=== PATIENT | female | born 1965 | race Caucasian/White ===

== ENCOUNTER 2019-03-06 18:30 | Emergency (ER) | payer SELFPAY ==
[~2019-03-06] VITALS: Ht 154.9 cm; Wt 90.4 kg
--- OUTSIDE RECORDS SUMMARY | 2019-03-06 18:32 | XMS REPORT | Continuity of Care Document ---
Author Author [facility] Address Unknown Phone Unavailable Problems Problem Status Onset Date Classification Date Reported Comments Source Palpitations 02/23/2018 05/27/2018 [facility] R00.2 CTA AORTA ABDOMEN WITH LEG RUNOF Active 02/11/2018 [facility] Atherosclerosis of aorta 05/27/2018 [facility] Medications Medication Details Route Status Patient Instructions Ordering Provider Order Date Source Allergies, Adverse Reactions, Alerts Substance Category Reaction Severity Reaction type Status Date Reported Comments Source codeine Assertion Drug allergy Active OPID [place] Immunizations Immunization Date Given Site Status Last Updated Comments Source Results Order Name Results Value Reference Range Date Interpretation Comments Source Hand 3 views Bilateral DX Hand 3 views Bilateral DX Clinical Indication: Bilateral hand pain. Comparison: None. Right hand: FINDINGS: The AP, oblique and lateral views of the right hand show normal alignment without fractures or dislocations. The digit and thumb interphalangeal joints are unremarkable. The metacarpophalangeal joints are unremarkable. The carpometacarpal joint regions are unremarkable. There are no osseous erosive changes, periarticular osteopenia or periarticular soft tissue swelling. There are no soft tissue calcifications. There is no soft tissue swelling or radiopaque foreign bodies. The visualized wrist region is grossly unremarkable. If there is further concern, consider MRI or bone scan for complete assessment. IMPRESSION: 1. Unremarkable right hand radiographs. Left hand: FINDINGS: The AP, oblique and lateral views of the left hand show normal alignment without fractures or dislocations. The digit and thumb interphalangeal joints are unremarkable. The metacarpophalangeal joints are unremarkable. The carpometacarpal joint regions are unremarkable. There are no osseous erosive changes, periarticular osteopenia or periarticular soft tissue swelling. There are no soft tissue calcifications. There is no soft tissue swelling or radiopaque foreign bodies. The visualized wrist region is grossly unremarkable. If there is further concern, consider MRI or bone scan for complete assessment. IMPRESSION: 1. Unremarkable left hand radiographs. SL: [id number] 02/24/2019 - - Read by: Marysol Perez DO Dictated Date/time: 02/25/19 09:27 Electronically Signed by: Marysol Perez DO 02/25/19 09:28 FINAL REPORT ABDIRASHID [place] CHEM PANEL eGFR 100 mL/min/1.73m2 02/18/2018 Result Comment: The eGFR is calculated using the CKD-EPI formula. In most young, healthy individuals the eGFR will be >90 mL/min/1.73m2. The eGFR declines with age. An eGFR of 60-89 may be normal in some populations, particularly the elderly, for whom the CKD-EPI formula has not been extensively validated. Use of the eGFR is not recommended in the following populations: Individuals with unstable creatinine concentrations, including patients and those with serious co-morbid conditions. Patients with extremes in muscle mass or diet. The data above are obtained from the National Kidney Disease Education Program (NKDEP) which additionally recommends that when the eGFR is used in patients with extremes of body mass index for purposes of drug dosing, the eGFR should be multiplied by the estimated BMI. [facility] CHEM [facility] P[facility] Creatinine 0.7 mg/dL 0.5 - 1.4 02/18/2018 [facility] Abdominal Aorta with runoff CTA Abdominal Aorta with runoff CTA Clinical Indication: Peripheral arterial disease, claudication; Comparison: None TECHNIQUE: CT angiography of the abdomen, pelvis and lower extremities was performed from the level of the upper abdomen to the feet after administration of iodinated contrast. Coronal and sagittal reconstructions were obtained. 3-D reconstruction imaging with postprocessing was also performed of the arterial vessels. IV CONTRAST: 100 mL Omnipaque GI CONTRAST: None DLP: 808 mGy-cm FINDINGS: CTA ABDOMEN: ARTERIAL EVALUATION: The abdominal aorta is unremarkable. The celiac, superior mesenteric and inferior mesenteric arteries appear unremarkable. The proximal arterial branches appear unremarkable. Single left and 2 right renal arteries are patent. Filter in the infrarenal IVC, likely Bird's nest type Incidentally the left renal vein is retroaortic. ABDOMINAL SOLID ORGANS: The arterial phase contrast-enhanced images of the liver, spleen, pancreas, kidneys and adrenals are unremarkable. Cholecystectomy. PERITONEUM AND RETROPERITONEUM: There is no retroperitoneal or abdominal lymphadenopathy. There is no abdominal ascites. STOMACH AND BOWEL: Limited evaluation without contrast. There is a right lower quadrant ileostomy or hernia. The majority of the colon appears to have been resected. Correlation with surgical history is advised. VISUALIZED LUNG BASES: Unremarkable. OSSEOUS STRUCTURES: There is generalized osteopenia. There are no gross osseous abnormalities seen. CTA PELVIS: ARTERIAL EVALUATION: Atherosclerotic calcifications of the common iliac arteries without any hemodynamically significant stenosis. PERITONEUM AND EXTRAPERITONEAL REGIONS: There is no pelvic lymphadenopathy or ascites. The inguinal regions are unremarkable. BLADDER: The bladder is unremarkable. OSSEOUS STRUCTURES: There are no definite significant osseous abnormalities seen. CTA EXTREMITY: LOWER EXTREMITY ARTERIAL EVALUATION: RIGHT: Common femoral artery: Patent. Deep femoral artery: Patent. Superficial femoral artery: Patent. Popliteal artery: Patent. Tibioperoneal trunk: Patent. Anterior tibial artery: Patent. Posterior Tibial artery: Patent. Peroneal artery: Patent. Dorsal pedis artery: Patent. LEFT: Common femoral artery: Patent. Deep femoral artery: Patent. Superficial femoral artery: Patent. Popliteal artery: Patent. Tibioperoneal trunk: Patent. Anterior tibial artery: Patent. Posterior Tibial artery: Patent. Peroneal artery: Patent. Dorsal pedis artery: Patent. NON-VASCULAR LOWER EXTREMITY STRUCTURES: There are no fractures or dislocations noted. The lower extremity musculature appears unremarkable. IMPRESSION: 1. Patent bilateral three-vessel runoff. No hemodynamically significant stenosis in the arteries of the lower extremities. 2. Mild aortoiliac atherosclerotic disease. SL: [id number] 02/18/2018 - - Read by: Tico Calvert MD Dictated Date/time: 02/18/18 13:08 Electronically Signed by: Tico Calvert MD 02/18/18 14:13 FINAL REPORT [facility] Vital Signs Vital Sign Value Date Comments Source Encounters Location Location Details Encounter Type Encounter Number Reason For Visit Attending Provider ADM Date DC Date Status Source [facility] Outpatient [id number] Cindy Potter Jr 02/18/2018 02/19/2018 [facility] [id number] Mitchel Hernadez 02/24/2019 02/25/2019 ABDIRASHID Michele Procedures Procedure Code Date Perfomer Comments Source
--- OUTSIDE RECORDS SUMMARY | 2019-03-06 18:32 | XMS REPORT | Summary of Care ---
Author Author [facility] Organization [facility] Address Unknown Phone Unavailable Encounter [facility]ars[facility](FIN) [id number] Date(s): 02/18/18 - 02/18/18 [facility] [address] [place] [address]- Encounter Diagnosis Palpitations (Final) - 02/22/18 Atherosclerosis of aorta (Final) - Discharge Disposition: Home or Self Care Attending Physician: Cindy Beaver DO Referring Physician: Cindy Beaver DO Vital Signs No data available for this section Problem List No data available for this section Allergies, Adverse Reactions, Alerts Substance Reaction Severity Status codeine Active Medications No data available for this section Results CHEM PANEL Most recent to 1 oldest [Reference Range]: eGFR 100 mL/min/1.73m2 1 *NA* (02/18/18 8:44 AM) POC Creatinine 0.7 mg/dL [0.5-1.4 mg/dL] (02/18/18 8:44 AM) 1Result Comment: The eGFR is calculated using the [...] from the National Kidney Disease Education Program ( NKDEP) which additionally recommends that when the eGFR is used in patients with extremes of body mass index for purposes of drug dosing, the eGFR should be mul tiplied by the estimated BMI. Immunizations No data available for this section Procedures No data available for this section Social History No data available for this section Assessment and Plan No data available for this section
--- OUTSIDE RECORDS SUMMARY | 2019-03-06 18:32 | XMS REPORT ---
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 Allergies, Adverse Reactions, Alerts This patient has no known allergies or adverse reactions. Medications This patient has no known medications. Encounters Start Date/Time End Date/Time Encounter Type Admission Type Attending [facility] Care Department Encounter ID 2017-11-07 00:00:00 2017-11-07 00:00:00 Outpatient [facility] [id number] 2017-08-13 07:51:02 2017-08-13 07:51:02 Outpatient [facility] [id number] 2017-08-13 00:00:00 2017-08-13 00:00:00 Outpatient [facility] [id number] 2017-08-13 00:00:00 2017-08-13 00:00:00 Outpatient [facility] [id number] 2017-05-23 09:31:01 2017-05-23 09:31:01 Outpatient [facility] [id number] 2017-04-20 14:03:37 2017-04-20 14:03:37 Outpatient [facility] [id number]
[2019-03-06] MEDS ORDERED: ONDANSETRON HCL 4 MG ORAL DISINTEGRATING TAB PO ONE (19:30)
[2019-03-06] MEDS ORDERED: HYDROCODONE/APAP 5MG-325MG TAB PO ONE (19:30)
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
== END 2019-03-06 20:15 | disposition home or self-care (01) ==
LOC: FSED 18:30
DX: M54.2 Cervicalgia (principal); V53.5XXA Driver of pick-up truck or van injured in collision with car, pick-up truck or van in traffic accident, initial encounter; Y92.488 Other paved roadways as the place of occurrence of the external cause
CPT/HCPCS: 72125; 99284; Q0162

== ENCOUNTER → 2019-03-11 | Outpatient (CLI) | payer OTHER ==
--- NOTE | 2019-03-11 16:14 | Diagnostic Imaging Report ---
EXAM: HIP RIGHT 2-3 VW (+/- PELVIS) DATE: 03/11/2019 12:50 PM INDICATION:Sprain of right hip COMPARISON: None FINDINGS: 4 views of the pelvis and right hip were obtained. AP views of the pelvis show no displaced fracture. The hip joints appear symmetric. There is partial visualization of a metallic density to the right of the L4 vertebral body. AP and oblique views of the right hip show no displaced fracture or dislocation. Joint space is maintained. Soft tissues unremarkable. IMPRESSION: No acute bony abnormality. Hip joint spaces appear symmetric and maintained. Signed by: Dr. Maxx Mercado M.D. on 03/11/2019 4:11 PM
--- NOTE | 2019-03-11 17:42 | Diagnostic Imaging Report ---
Exam: Right shoulder series; 2 views dated 03/11/2019 History: Sprain Comparison: None available Findings: There is no fracture or dislocation. Soft tissues appear intact. Slight irregularity of the distal clavicle not involving the articular surface at the AC joint likely represents old or subacute trauma. Impression: No acute abnormality identified. Signed by: Dr. Syed Rios DO on 03/11/2019 5:38 PM
--- NOTE | 2019-03-11 17:49 | Diagnostic Imaging Report ---
Cervical spine, 6 views dated 03/11/2019. History: <Neck pain>. Discussion: Anterior cervical fixation plate is noted involving C5, C6 and C7 vertebral bodies. Complete fusion is noted. There is no evidence of fracture, subluxation or dislocation. There is disc space narrowing at C4-C5 with some posterior listhesis of C4 on C5. There is bilateral foraminal encroachment at this level. The C4 vertebral body is sclerotic. The prevertebral soft tissues are within normal limits as well. IMPRESSION: 1. Status post anterior fusion C5-C7 with plate and fused vertebral bodies intact. 2. Disc space narrowing involving C4-C5 with posterior listhesis of C4. 3. Bilateral neural intervertebral foraminal narrowing at C4-C5. Signed by: Dr. Syed Rios DO on 03/11/2019 5:46 PM
--- NOTE | 2019-03-11 17:51 | Diagnostic Imaging Report ---
Exam: Left knee series; 2 views dated 03/11/2019 History: Pain Comparison: None available Findings: There is no fracture or dislocation. Soft tissues are intact. No joint effusion. Impression: Normal study. Signed by: Dr. Syed Rios DO on 03/11/2019 5:48 PM
== END ==
LOC: RAD 12:44
PROVIDERS: ATTEND Internal Medicine
DX: S43.411D Sprain of right coracohumeral (ligament), subsequent encounter (principal); S73.101D Unspecified sprain of right hip, subsequent encounter; S33.5XXD Sprain of ligaments of lumbar spine, subsequent encounter; S83.8X2D Sprain of other specified parts of left knee, subsequent encounter
CPT/HCPCS: 72050

== ENCOUNTER → 2019-07-28 | Outpatient (CLI) | payer OTHER ==
[~2019-07-28] MED LIST: IOPAMIDOL 370 MG/ML 200 ML INFUS..BTL INJ ONE; SODIUM CHLORIDE 0.9% 50ML 50 ML ONE
[2019-07-28 14:44] LABS: BLOOD UREA NITROGEN 16 mg/dL (7-26); BUN/CREATININE RATIO 23 (6-25); CREATININE, SERUM 0.71 mg/dL (0.57-1.11); EST GLOMERULAR FILTRATION RATE > 60 ML/MIN (60-)
--- NOTE | 2019-07-28 15:54 | Diagnostic Imaging Report ---
Exam: Head CT with IV contrast History: Headache Comparison studies: None Technique: Axial images were obtained from the skull base to the vertex. Coronal and sagittal images reconstructed from the axial data. Dose modulation, iterative reconstruction, and/or weight based adjustment of the mA/kV was utilized to reduce the radiation dose to as low as reasonably achievable. Radiation dose: Total DLP: 921 mGy*cm. Estimated effective dose: DLP x 0.015 Intravenous contrast: 100 cc Isovue-[id number] Findings: Scalp: No abnormalities. Bones: No fractures, blastic or lytic lesions. Brain sulci: Appropriate for age. Ventricles: Normal in size and configuration. No hydrocephalus. Extra-axial spaces: No masses, no fluid collection. Parenchyma: No abnormal densities. No masses, acute hemorrhage, acute or chronic vascular insults. Sellar/suprasellar region: No abnormalities. Craniocervical junction: Patent foramen magnum. No Chiari one malformation. Included paranasal sinuses: Clear. Middle ear mastoid cavities: Clear. IMPRESSION: No intracranial abnormalities. Signed by: Dr. Tico Rock M.D. on 07/28/2019 3:51 PM
== END ==
LOC: CT 13:38
PROVIDERS: ATTEND Internal Medicine
DX: R51 Headache (principal)
CPT/HCPCS: 36415; 70460; 82565; 84520; Q9967

== ENCOUNTER → 2024-06-11 | Outpatient (REF) | payer OTHER | LOC: RAD 09:22 | PROVIDERS: ATTEND Internal Medicine | DX: M19.011 Primary osteoarthritis, right shoulder (principal) ==